=== PATIENT | female | born 1945 | race Caucasian/White ===

== ENCOUNTER 2019-03-28 12:39 | Day surgery (SDC) | payer MEDICARE, OTHER ==
[~2019-03-28 12:39] MED LIST: Buffered Lidocaine 1% SYRIN* 1 ML/SYRINGE INTRADERM ONE; Lactated Ringers 1000 ML Bag* 1,000 ML IV SCH
[2019-03-28] MEDS ORDERED: Bacitracin OPHTH.OINT* 3.5 GM ONE (14:43)
[2019-03-28] MEDS ORDERED: BSS OPTH.SOL* BTL ONE (14:43)
[2019-03-28] MEDS ORDERED: Lidocaine 1% w EPI 1:100,000* MDV 20 ML VIAL ONE (14:44)
[2019-03-28] MEDS ORDERED: fentaNYL* 50 MCG/ML 2 ML VIAL (100 MCG VIAL) ONE (15:15)
[2019-03-28] MEDS ORDERED: Midazolam* 1 MG/ML 5 ML VIAL (5 MG) ONE (15:15)
[2019-03-28] MEDS ORDERED: Lidocaine 2% PF * 5 ML VIAL ONE (15:57)
[2019-03-28] MEDS ORDERED: Propofol* 10 MG/ML 20 ML BTL ONE (15:57)
[2019-03-28 17:12] VITALS: BP 105/68
--- NOTE | 2019-03-29 00:09 | OP ---
DATE OF OPERATION: 03/28/19 - [facility] DATE OF : 47 SURGEON: Dr. Felipe Moore. MANAGER PRINTING: None. 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 OPERATIVE PROCEDURE: Bilateral upper lid blepharoplasty and bilateral direct brow lift. COMPLICATIONS: None. BLOOD LOSS: Less than 5 cc. DESCRIPTION OF PROCEDURE: The patient was seen preoperatively where detailed menon were made on each upper lip and above each eye brow delineating skin incisions. The patient was brought to the operating room and given a small amount of intravenous sedation. During this time, approximately 5 cc in total of 1% lidocaine with epinephrine was injected in the upper lids and above each eyebrow. The patient was then prepped and draped in the usual sterile fashion for ophthalmic surgery and attention was direct to the right eye. Here a #15 Bard-Tyler blade was used to incise the skin and superficial orbicularis along the elliptical menon made in the preoperative area. Care was taken to ensure that adequate tissue remain behind to allow complete closure of the eyelid even after the brow lift. Hemostasis was achieved with cauterization. The skin was then closed with a running 6-0 chromic gut. The septum was not opened and fat was not removed purposefully as the patient did not require that aspect of the procedure. Then the 15 Bard-Tyler blade was used to incise along the menon in the skin above the upper eyebrow. tammy was made at the level of the most superior hair of the upper brow. A gentle arch was created with the peak above the area of the lateral canthus. The blade was beveled cephalad to avoid transecting hair follicles. Once the skin and underlying tissue was removed, cauterization was performed to achieve hemostasis. The deeper layers were closed with interrupted 6-0 gut suture. The skin was then closed with a running nylon suture. Attention was directed to the contralateral eye where the same procedure was performed. At the end of the case, there existed good symmetry in both brow and lid position. There did not appear to any active bleeding. The patient was able to open and close her eyelids fully. She was placed in an upright position and reevaluated. Bacitracin was placed along the wounds and the patient was transferred to the recovery room where ice was applied to her closed eyes prior to discharge. Postoperative instructions and followup appointment had been given. [id number]/[facility] #: [id number] AILEEN
== END 2019-03-28 17:21 | disposition home or self-care (01) ==
LOC: OREAST 12:39
PROVIDERS: ATTEND Ophthalmology
DX: H02.834 Dermatochalasis of left upper eyelid (principal); H02.831 Dermatochalasis of right upper eyelid; H57.813 Brow ptosis, bilateral; J45.909 Unspecified asthma, uncomplicated; E03.9 Hypothyroidism, unspecified; E78.00 Pure hypercholesterolemia, unspecified; Z87.891 Personal history of nicotine dependence; F32.9 Major depressive disorder, single episode, unspecified; Z68.33 Body mass index [BMI] 33.0-33.9, adult
CPT/HCPCS: A9270-GY; J2250; J2704; J3010